=== PATIENT | female | born 1990 | race Caucasian/White ===

== ENCOUNTER 2017-01-13 19:27 | Emergency (ER) | payer BC ==
[2017-01-13 21:09] VITALS: BP 111/59
--- NOTE | 2017-01-13 21:18 | UC ---
Throat Pain/Nasal Juan Alberto HPI - HPI Summary HPI Summary: Pt presents with c/o of sore throat, nasal congestion and sinus pressure and generalized malaise X 3-4 days. - History of Current Complaint Chief Complaint: UCGeneralIllness Stated Complaint: THROAT Time Seen by Provider: 01/13/17 20:43 Hx Obtained From: Patient Hx Last Menstrual Period: 09/2016 - has implanon ?: No Onset/Duration: Sudden Onset, Lasting Days - 3-4 days Severity: Moderate Cough: Nonproductive Associated Signs & Symptoms: Positive: Dysphagia Related History: Seasonal Allergies - Allergies/Home Medications Allergies/Adverse Reactions: Allergies Allergy/AdvReac Type Severity Reaction Status Date / Time No Known Allergies Allergy Verified 01/13/17 20:53 Home Medications: Home Medications Cetirizine* [ZyrTEC 10 MG TAB*] 10 mg PO DAILY 01/13/17 [History Confirmed 01/13] PMH/Surg Hx/FS Hx/Imm Hx Previously Healthy: Yes Endocrine History Of: Denies: Diabetes, Thyroid Disease, Hyperthyroidism, Hypothyroidism, Dyslipidemia Cardiovascular History Of: Denies: Cardiac Disorders, Hypertension, Pacemaker/ICD, Myocardial Infarction , Congestive Heart Failure, Atrial Fibrillation, Deep Vein Thrombosis, Bleeding Disorders Respiratory History Of: Denies: COPD, Asthma, Bronchitis, Pneumonia, Pulmonary Embolism GI/ History Of: Denies: Gastroesophageal Reflux, Ulcer, Gastrointestinal Bleed, Gall Bladder Disease, Kidney Stones, Diverticulitis, Renal Disease, Urosepsis Neurological History Of: Denies: TIA, CVA, Dementia, Seizures, Migraine Psychological History Of: Reports: Anxiety - She has not been on treatment before. Denies: Depression, Bipolar Disorder, Schizophrenia, Post Traumatic Stress Disorder Cancer History Of: Denies: Lung Cancer, Colorectal Cancer, Breast Cancer, Prostate Cancer, Cervical Cancer Other History Of: Negative For: HIV, Hepatitis B, Hepatitis C, Anticoagulant Therapy - Surgical History Surgical History: Yes Surgery Procedure, Year, and Place: Tonsillectomy - Family History Known Family History: Negative: Cardiac Disease, Hypertension - Social History Occupation: Student - at college in [place] Alcohol Use: Occasionally Substance Use Type: None Smoking Status (MU): Never Smoked Tobacco - Immunization History Most Recent Influenza Vaccination: Not the Season Review of Systems Constitutional: Fatigue Skin: Negative Eyes: Negative ENT: Sore Throat Respiratory: Cough Cardiovascular: Negative Gastrointestinal: Negative Genitourinary: Negative Motor: Negative Neurovascular: Negative Musculoskeletal: Negative Neurological: Headache Psychological: Negative All Other Systems Reviewed And Are Negative: Yes Physical Exam Triage Information Reviewed: Yes Appearance: Ill-Appearing Vital Signs: Initial Vital Signs Temp 98.6 F 01/13/17 20:54 Pulse 66 01/13/17 20:54 Resp 16 01/13/17 20:54 BP 111/59 01/13/17 20:54 Pulse Ox 100 01/13/17 20:54 Eye Exam: Normal ENT Exam: Other ENT: Positive: Nasal congestion, Tonsillar swelling Neck exam: Normal Respiratory Exam: Normal Cardiovascular Exam: Normal Abdominal Exam: Normal Musculoskeletal Exam: Normal Neurological Exam: Normal Psychological Exam: Normal Skin Exam: Normal Throat Pain/Nasal Course/Dx - Differential Dx/Diagnosis Differential Diagnosis/HQI/PQRI: Influenza, Mononucleosis, Pharyngitis, Sinusitis, Tonsillitis, URI Provider Diagnoses: tonsillitis Discharge - Discharge Plan Condition: Stable Disposition: HOME Prescriptions: Amoxicillin CAP* [Amoxicillin 500 MG CAP*] 500 mg PO Q12H #14 cap Patient Education Materials: Tonsillitis (ED) Referrals: Leonarda Monroy MD [Medical Doctor] - If Needed (Please follow p with your PCP or return to clinic as needed. )
[2017-01-13] MEDS ORDERED: Amoxicillin CAP* 500 MG PO ONE (21:29)
== END 2017-01-13 21:38 | disposition home or self-care (01) ==
LOC: UCCORT 19:27
DX: J03.90 Acute tonsillitis, unspecified (principal); F41.9 Anxiety disorder, unspecified
CPT/HCPCS: 87651; 99212; A9270-GY; G0463

== ENCOUNTER 2017-02-25 12:32 | Emergency (ER) | payer BC ==
[2017-02-25 12:51] VITALS: BP 120/78
--- NOTE | 2017-02-25 13:15 | ED ---
GI/ HPI - HPI Summary HPI Summary: 26 yr old female with burning, frequency, hesitancy, urgency on urination. She states she had onset of these symptoms yesterday. She has no fever, chills, abdominal or back pain, no nausea or vomiting. No other complaints. She has had UTI before and feels like she has one this time. She took Azo so we are not able to do point of care urine. - History of Current Complaint Chief Complaint: UCGU Time Seen by Provider: 02/25/17 12:54 Stated Complaint: URINARY COMPLAINT - Allergy/Home Medications Allergies/Adverse Reactions: Allergies Allergy/AdvReac Type Severity Reaction Status Date / Time No Known Allergies Allergy Verified 02/25/17 12:51 PMH/Surg Hx/FS Hx/Imm Hx Endocrine/Hematology History: Denies: Hx Anticoagulant Therapy, Hx Diabetes, Hx Thyroid Disease Cardiovascular History: Denies: Hx Congestive Heart Failure, Hx Deep Vein Thrombosis, Hx Hypertension , Hx Myocardial Infarction, Hx Pacemaker/ICD Respiratory History: Denies: Hx Asthma, Hx Chronic Obstructive Pulmonary Disease (COPD), Hx Lung Cancer, Hx Pneumonia, Hx Pulmonary Embolism GI History: Denies: Hx Gall Bladder Disease, Hx Gastrointestinal Bleed, Hx Ulcer, Hx Urosepsis History: Denies: Hx Kidney Stones, Hx Renal Disease Neurological History: Denies: Hx Dementia, Hx Migraine, Hx Seizures, Hx Transient Ischemic Attacks (TIA) Psychiatric History: Reports: Hx Anxiety - She has not been on treatment before. Denies: Hx Depression, Hx Schizophrenia, Hx Bipolar Disorder - Surgical History Surgery Procedure, Year, and Place: Tonsillectomy Infectious Disease History: No Infectious Disease History: Denies: Traveled Outside the [place] in Last 30 Days - Family History Known Family History: Negative: Cardiac Disease, Hypertension - Social History Alcohol Use: Weekly Substance Use Type: Reports: None Smoking Status (MU): Never Smoked Tobacco Review of Systems Constitutional: Negative Negative: Fever, Chills Positive: burning, dysuria, frequency, urgency All Other Systems Reviewed And Are Negative: Yes Physical Exam Triage Information Reviewed: Yes Vital Signs On Initial Exam: Initial Vitals Temp Pulse Resp BP Pulse Ox 97.7 F 72 14 120/78 98 02/25/17 12:45 02/25/17 12:45 02/25/17 12:45 02/25/17 12:45 02/25/17 12:45 Vital Signs Reviewed: Yes Appearance: Positive: Well-Appearing, No Pain Distress Skin: Positive: Warm Head/Face: Positive: Normal Head/Face Inspection ENT: Positive: Normal ENT inspection Neck: Positive: Supple Respiratory/Lung Sounds: Positive: Clear to Auscultation, Breath Sounds Present Cardiovascular: Positive: Normal, RRR Abdomen Description: Positive: Nontender. Negative: CVA Tenderness (R), CVA Tenderness (L) Musculoskeletal: Positive: Normal, Strength/ROM Intact Neurological: Positive: Normal, Sensory/Motor Intact, Alert, Oriented to Person Place, Time, CN Intact II-III Psychiatric: Positive: Normal - Gilbert Coma Scale Best Eye Response: 4 - Spontaneous Diagnostics - Vital Signs Vital Signs Temp Pulse Resp BP Pulse Ox 02/25/17 12:45 97.7 F 72 14 120/78 98 - Laboratory Lab Results: Lab Results 02/25/17 Range/Units 12:57 POC Ur Test Negative (Negative) Lab Statement: Any lab studies that have been ordered have been reviewed, and results considered in the medical decision making process. GIGU Course/Dx - Course Course Of Treatment: 26 yr old female with urinary symptoms of a UTI. UA and culture sent. Cipro ordered. - Diagnoses Provider Diagnoses: UTI (urinary tract infection) Discharge - Discharge Plan Condition: Good Disposition: HOME Prescriptions: Ciprofloxacin TAB* [Cipro 500 MG TAB*] 500 mg PO BID #10 tab Patient Education Materials: Urinary Tract Infection in Women (ED) Referrals: Halle Sheets NP [Primary Care Provider] -
[2017-02-25 19:06] LABS: Urine Bacteria Absent (Absent); Urine Bilirubin Negative (Negative); Urine Glucose Negative (Negative); Urine Nitrite Negative (Negative)
== END 2017-02-25 13:22 | disposition home or self-care (01) ==
LOC: UCCORT 12:32
DX: N39.0 Urinary tract infection, site not specified (principal); Z87.440 Personal history of urinary (tract) infections; F41.9 Anxiety disorder, unspecified; Z32.02 Encounter for pregnancy test, result negative
CPT/HCPCS: 81003; 81015; 84702; 87086; 99212; G0463

== ENCOUNTER 2017-12-16 11:30 | Emergency (ER) | payer BC ==
[2017-12-16 12:19] VITALS: BP 108/77
--- NOTE | 2017-12-16 12:37 | UC ---
Throat Pain/Nasal Juan Alberto HPI - HPI Summary HPI Summary: Pt c/o sudden onset of sore throat that began on 12/12/17 and has worsened since onset. 2. Pt c/o urinary symptoms of frequency, urgency and dysuria. - History of Current Complaint Chief Complaint: UCRespiratory Stated Complaint: SORE THROAT/FEMALE COMP Time Seen by Provider: 12/16/17 12:13 Hx Obtained From: Patient Hx Last Menstrual Period: 10/2017 ?: No - pt has nexplanon, menses irregular Onset/Duration: Sudden Onset - urinary c/o and ST Severity: Moderate Pain Intensity: 6 Associated Signs & Symptoms: Positive: Dysphagia - Epiglottits Risk Factors Epiglottis Risk Factors: Negative - Allergies/Home Medications Allergies/Adverse Reactions: Allergies Allergy/AdvReac Type Severity Reaction Status Date / Time No Known Allergies Allergy Verified 12/16/17 12:20 PMH/Surg Hx/FS Hx/Imm Hx Previously Healthy: Yes Other History Of: Negative For: HIV, Hepatitis B, Hepatitis C, Anticoagulant Therapy - Surgical History Surgical History: Yes Surgery Procedure, Year, and Place: Tonsillectomy - Family History Known Family History: Negative: Cardiac Disease, Hypertension - Social History Occupation: Employed Full-time Lives: With Family Alcohol Use: Weekly Alcohol Amount: 3 average Substance Use Type: None Smoking Status (MU): Never Smoked Tobacco Have You Smoked in the Last Year: No - Immunization History Most Recent Influenza Vaccination: Not the Season Review of Systems Constitutional: Fatigue Skin: Negative Eyes: Negative ENT: Sore Throat Respiratory: Negative Cardiovascular: Negative Gastrointestinal: Negative Genitourinary: Dysuria, Frequency, Urgency Motor: Negative Neurovascular: Negative Musculoskeletal: Negative Neurological: Negative Psychological: Negative Is Patient Immunocompromised?: No All Other Systems Reviewed And Are Negative: Yes Physical Exam Triage Information Reviewed: Yes Vital Signs: Initial Vital Signs Temp 98.1 F 12/16/17 12:06 Pulse 85 12/16/17 12:06 Resp 18 12/16/17 12:06 BP 108/77 12/16/17 12:06 Pulse Ox 100 12/16/17 12:06 Vital Signs Reviewed: Yes Eye Exam: Normal ENT Exam: Other ENT: Positive: Pharyngeal erythema Dental Exam: Normal Neck exam: Other Neck: Positive: Enlarged Nodes @ - left submandibular Respiratory Exam: Normal Cardiovascular Exam: Normal Musculoskeletal Exam: Normal Neurological Exam: Normal Psychological Exam: Normal Skin Exam: Normal Diagnostics - Laboratory Diagnostic Studies Completed/Ordered: Rapid strep: positive Throat Pain/Nasal Course/Dx - Differential Dx/Diagnosis Differential Diagnosis/HQI/PQRI: Pharyngitis, Tonsillitis, Other - UTI Provider Diagnoses: UTI. Strep Throat Discharge - Sign-Out/Discharge Documenting (check all that apply): Discharge - Discharge Plan Condition: Stable Disposition: HOME Prescriptions: Cephalexin CAP* [Keflex 500 CAP*] 500 mg PO QID #40 cap Fluconazole 100 MG TAB* [Diflucan 100 MG TAB*] 100 mg PO DAILY #2 tab Phenazopyridine TAB* [Pyridium 100 mg TAB*] 100 mg PO TID #3 tab Patient Education Materials: Urinary Tract Infection in Women (DC), Strep Throat (ED) Referrals: [facility] [Outside] No Primary Care Phys,NOPCP [Primary Care Provider] - - Billing Disposition and Condition Condition: STABLE Disposition: HOME
== END 2017-12-16 13:04 | disposition home or self-care (01) ==
LOC: UCCORT 11:30
DX: J02.0 Streptococcal pharyngitis (principal); N39.0 Urinary tract infection, site not specified; Z32.02 Encounter for pregnancy test, result negative
CPT/HCPCS: 81003; 84702; 87086; 87651; 99212; G0463